=== PATIENT | female | born 1975 | race African-American/Black ===

== ENCOUNTER 2024-06-05 23:36 | Emergency (ER) | payer BC ==
[~2024-06-05] VITALS: Ht 162.6 cm; Wt 73.0 kg
[2024-06-05 23:51] VITALS: O2SAT 99
[2024-06-06] MEDS: SODIUM CHLORIDE 0.9% 1,000 ML IV ONE (01:01)
[2024-06-06 01:02] LABS: BASOPHILS % 0.8 % (0.0-2.0); HEMATOCRIT. 35.6 % (36.0-48.0); HEMOGLOBIN. 11.4 g/dL (12.0-16.0); LYMPHOCYTES % 23.3 % (20.0-50.0); MEAN CORPUSCULAR HEMOGLOBIN 27.5 pg (28.0-32.0); MEAN CORPUSCULAR HGB CONC 31.9 g/dL (31.0-37.0); MEAN CORPUSCULAR VOLUME 86.2 fL (81.0-99.0); MEAN PLATELET VOLUME 9.7 fl (7.4-10.4); MONOCYTES % 12.1 % (2.0-8.0); NEUTROPHILS % 58.8 % (40.0-76.0); PLATELET 368 x1000/uL (130-400); RED BLOOD CELL COUNT 4.13 mill/uL (4.2-5.4); RED CELL DISTRIBUTION WIDTH 14.9 % (11.6-14.6)
[2024-06-06] MEDS: METOPROLOL TARTRATE 5MG/5ML VIAL IV ONE (01:02)
[2024-06-06 01:08] LABS: CHLORIDE 109 mEq/L (98-107); SODIUM 141 mEq/L (136-145)
[2024-06-06 01:09] LABS: CARBON DIOXIDE 25 mEq/L (21-32)
[2024-06-06 01:10] LABS: CALCIUM 9.1 mg/dL (8.7-10.4)
[2024-06-06 01:14] LABS: CREATININE 0.9 mg/dL (0.6-1.0); GLUCOSE 109 mg/dL (70-105); UREA NITROGEN BLOOD 11 mg/dL (9-23)
[2024-06-06 01:15] LABS: TROPONIN I HIGH SENSITIVITY 15 ng/L (3.0-34)
[2024-06-06 01:19] LABS: THYROID STIMULATING HORMONE < 0.10 uIU/mL (0.55-4.78)
[2024-06-06 01:24] LABS: ETHANOL BLOOD < 10 mg/dL (<10)
[2024-06-06 01:30] LABS: HCG SCREEN NEGATIVE
[2024-06-06 02:46] LABS: *AMPHETAMINES SCREEN URINE NEGATIVE (NEGATIVE); *BARBITURATES SCREEN URINE NEGATIVE (NEGATIVE); *BENZODIAZEPINES SCREEN URINE NEGATIVE (NEGATIVE)
[2024-06-06 02:47] LABS: *COCAINE SCREEN URINE NEGATIVE (NEGATIVE); CANNABINOID URINE SCREEN NEGATIVE (NEGATIVE); ECSTASY MDMA SCREEN URINE NEGATIVE (NEGATIVE); METHADONE URINE SCREEN NEGATIVE (NEGATIVE); OPIATES URINE SCREEN NEGATIVE (NEGATIVE); PHENCYCLIDINE URINE SCREEN NEGATIVE (NEGATIVE)
[2024-06-06 05:14] VITALS: BP 143/70; PULSE 103; RESP 20; TEMP 97.8
== END 2024-06-06 05:10 | disposition home or self-care (01) ==
LOC: ER 23:36
DX: I48.0 Paroxysmal atrial fibrillation (principal)
CPT/HCPCS: 93005; 99285; 80305; 80048; 80320; 84703; 83880; 83605; 84443; 85025; 85379; 84484; 36415; 71045; 96361; 96374; J3490; J7030; G0480